=== PATIENT | female | born 1985 | race Two or more races ===

== ENCOUNTER 2023-10-31 22:31 | Emergency (ER) | payer OTHER ==
[~2023-10-31] VITALS: Ht 167.6 cm; Wt 96.0 kg
[2023-11-01] MEDS ORDERED: PRED20TA2 PO (01:26)
[2023-11-01] MEDS ORDERED: DIPH25CA66 PO (01:26)
[2023-11-01] MEDS ORDERED: methylPREDNISolone SOD SUCC 125 MG/2 ML VL IM ONE (01:30)
[2023-11-01] MEDS ORDERED: diphenhdrAMINE HCL 50 MG/1 ML VL IM ONE (01:30)
[2023-11-01 02:17] VITALS: BP 128/74; PULSE 63; RESP 18; TEMP 98; O2SAT 99
== END 2023-11-01 02:36 | disposition home or self-care (01) ==
LOC: ER 22:31
DX: S90.562A Insect bite (nonvenomous), left ankle, initial encounter (principal); Z79.899 Other long term (current) drug therapy; W57.XXXA Bitten or stung by nonvenomous insect and other nonvenomous arthropods, initial encounter; Y93.89 Activity, other specified; Y92.89 Other specified places as the place of occurrence of the external cause; Y99.8 Other external cause status
CPT/HCPCS: 96372; 99284; J1200; J2930